=== PATIENT | female | born 1970 | race Caucasian/White ===

== ENCOUNTER → 2016-07-05 | Outpatient (CLI) | payer BC ==
[~2016-07-05] MED LIST: ACT300 PO; ACYC1CAP8 PO; AMOX500C3 PO; CALCTAB5 PO; ERGO1CAP35 PO; FRS/40 PO; PRLSR20 PO; PYRI100T4 PO; SERT-234 PO; SULF1TAB92 PO; TACR1CAP PO; [UNRECOGNIZED DRUG - OTHER] PO
[2016-07-09 01:40] LABS: CHLAMYDIA TRACH RNA*** NOT DETECTED (NOT DETECTED); GC (NEIS GONORRHOEAE)RNA** NOT DETECTED (NOT DETECTED)
== END | disposition home or self-care (01) ==
LOC: C.LABSPEC 16:08
PROVIDERS: ATTEND Obstetrics & Gynecology
DX: Z11.3 Encounter for screening for infections with a predominantly sexual mode of transmission (principal)

== ENCOUNTER → 2016-07-05 | Outpatient (CLI) | payer BC | END | disposition home or self-care (01) | LOC: C.PAPS 11:19 | PROVIDERS: ATTEND Obstetrics & Gynecology | DX: Z01.419 Encounter for gynecological examination (general) (routine) without abnormal findings (principal) ==

== ENCOUNTER → 2016-07-08 | Outpatient (CLI) | payer BC | END | disposition home or self-care (01) | LOC: C.MAMM 13:49 | PROVIDERS: ATTEND Surgery | DX: Z01.818 Encounter for other preprocedural examination (principal); M85.80 Other specified disorders of bone density and structure, unspecified site ==

== ENCOUNTER → 2016-09-16 | Outpatient (CLI) | payer BC ==
[2016-09-18 19:42] LABS: CMV DNA PCR QUANT SOURCE Plasma; CMV DNA QN REAL TIME PCR <200 IU/mL (<200); EBV DNA QUANT PCR <200 copies/mL (<200); EBV DNA QUANT SOURCE Whole Blood
== END | disposition home or self-care (01) ==
LOC: C.LAB 17:35
PROVIDERS: ATTEND Surgery
DX: Z94.82 Intestine transplant status (principal)

== ENCOUNTER → 2016-11-28 | Outpatient (CLI) | payer BC ==
[~2016-11-28] MED LIST changes: +ACYC-57 PO; -ACYC1CAP8 PO
--- NOTE | 2016-11-29 14:23 | MAMMOGRAPHY REPORT ---
BILATERAL DIGITAL SCREENING MAMMOGRAM TOMOSYNTHESIS WITH CAD: 11/28/2016 CLINICAL HISTORY: Routine screening. Patient has no complaints. TECHNIQUE: Breast tomosynthesis in addition to standard 2D mammography was performed. Current study was also evaluated with a Computer Aided Detection (CAD) system. COMPARISON: Comparison is made to exams dated: 11/28/2015 mammogram, 11/24/2014 mammogram, 11/08/2013 m ammogram, 05/10/2013 mammogram, 11/05/2012 mammogram, and 10/22/2012 mammogram - [facility] enter. BREAST COMPOSITION: There are scattered areas of fibroglandular density in both breasts. FINDINGS: There is a stable ribbon shaped metallic biopsy marker in the superior right breast. Stabl e asymmetry in the lateral left breast. No new suspicious mass, architectural distortion or cluster of microcalcifications is seen. IMPRESSION: ACR BI-RADS CATEGORY 1: NEGATIVE There is no mammographic evidence of malignancy. A 1 year screening mammogram is recommended. The pa tient will receive written notification of the results. Approximately 10% of breast cancers are not detected with mammography. A negative mammographic report should not delay biopsy if a clinically suggestive mass is present. Amena Garcia M.D. ay/:11/28/2016 17:14:28 Plant Machinist: Phoebe JOSHI)(Nuria)(BD), [facility] letter sent: Normal 1/2 BI-RADS Code: ACR BI-RADS Category 1: Negative
== END | disposition home or self-care (01) ==
LOC: C.MAMM 15:28
PROVIDERS: ATTEND Surgery
DX: Z12.31 Encounter for screening mammogram for malignant neoplasm of breast (principal)

== ENCOUNTER → 2016-12-25 | Outpatient (CLI) | payer BC ==
[~2016-12-25] MED LIST changes: -ACYC-57 PO; +ACYC1CAP8 PO
[2016-12-25 10:17] LABS: ALT/SGPT 23 U/L (12-78); BLOOD UREA NITROGEN 16 mg/dl (7-18); BUN/CREATININE RATIO 10.6 (10-20); CALCIUM 8.9 mg/dl (8.5-10.1); CARBON DIOXIDE 27 mmol/L (21-32); CHLORIDE 107 mmol/L (98-107); GLUCOSE 96 mg/dl (70-99); MAGNESIUM 2.2 mg/dl (1.8-2.4); SODIUM 140 mmol/L (136-145); URIC ACID 6.4 mg/dl (2.6-7.2)
[2016-12-25 10:20] LABS: ALKALINE PHOSPHATASE 113 U/L (45-117); AST/SGOT 16 U/L (15-37); PHOSPHORUS 2.5 mg/dl (2.5-4.9)
[2016-12-27 00:45] LABS: FK506 TACROLIMUS HIGHLY SENS 4.7 MCG/L (5-20)
== END | disposition home or self-care (01) ==
LOC: C.LAB 08:53
PROVIDERS: ATTEND Surgery
DX: N28.9 Disorder of kidney and ureter, unspecified (principal); Z94.82 Intestine transplant status

== ENCOUNTER 2017-05-10 18:52 | Emergency (ER) | payer BC, OTHER ==
[~2017-05-10] VITALS: Ht 162.6 cm; Wt 103.5 kg
[~2017-05-10 18:52] MED LIST changes: +ACYC-57 PO; -ACYC1CAP8 PO
[2017-05-10 18:55] VITALS: TEMP 37; Ht 162.6 cm; Wt 103.5 kg
[2017-05-10] MEDS ORDERED: SODIUM CHLORIDE 0.9% 1000ML 1,000 ML IV STA (18:57)
[2017-05-10 19:06] VITALS: O2SAT 99
[2017-05-10 19:09] LABS: ISTAT CREATININE 1.5 mg/dl (0.6-1.3); ISTAT HEMOGLOBIN 12.2 g/dl (12.0-16.0); ISTAT IONIZED CALCIUM 1.16 mmol/l (1.12-1.32)
[2017-05-10] MEDS ORDERED: PIPERACILLIN/TAZOBACTAM 4.5 GM/100ML D5W IV STA (19:09)
[2017-05-10 19:11] LABS: BASO % 0.2 %; BASO ABS # 0.01 K/uL (0-0.2); COMPLETE YES; EOS % 9.2 %; HEMATOCRIT 38.2 % (37-47); IG% 0.4 %; LYMPH % 20.8 %; LYMPH ABS # 1.06 K/uL (1.2-3.4); MEAN CELL VOLUME 94.8 fL (80-100); MEAN CORPUSCULAR HEMOGLOBIN 31.8 pg (25-34); MEAN CORPUSCULAR HGB CONC 33.5 g/dl (32-36); MONO % 3.3 %; NEUT % 66.1 %; PLATELET COUNT 140 K/uL (130-400); RED BLOOD COUNT 4.03 M/uL (4.2-5.4); WHITE BLOOD COUNT 5.09 K/uL (4.8-10.8)
[2017-05-10] MEDS ORDERED: OPTIRAY 320 IV PRN (19:15)
[2017-05-10 19:23] LABS: INR 0.9 (0.9-1.1); PARTIAL THROMBOPLASTIN RATIO 0.9
[2017-05-10 19:30] LABS: BUN/CREATININE RATIO 9.4 (10-20); CALCIUM 8.5 mg/dl (8.5-10.1); CREATININE 1.53 mg/dl (0.60-1.20); POTASSIUM 3.4 mmol/L (3.5-5.1)
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
[2017-05-10] MEDS ORDERED: HYDROmorphone INJ 1 MG/ML SYR IV STA (19:46)
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
[2017-05-10 20:18] VITALS: BP 152/87; PULSE 61; O2SAT 100
[2017-05-10] MEDS ORDERED: LORAZEPAM 0.5 MG TAB SL STA (20:40)
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
== END 2017-05-10 20:50 | disposition short-term general hospital (02) ==
LOC: C.EDA 18:52 → EDBD 18:52 → C.EDA 20:50
DX: K56.609 Unspecified intestinal obstruction, unspecified as to partial versus complete obstruction (principal); V40.0XXA Car driver injured in collision with pedestrian or animal in nontraffic accident, initial encounter; Z98.84 Bariatric surgery status; R03.0 Elevated blood-pressure reading, without diagnosis of hypertension

== ENCOUNTER → 2017-11-14 | Outpatient (CLI) | payer OTHER ==
[~2017-11-14] MED LIST changes: -ACT300 PO; -ACYC-57 PO; -PYRI100T4 PO; -SULF1TAB92 PO; -[UNRECOGNIZED DRUG - OTHER] PO
== END | disposition home or self-care (01) ==
LOC: C.PAPS 17:08
PROVIDERS: ATTEND Obstetrics & Gynecology
DX: Z12.4 Encounter for screening for malignant neoplasm of cervix (principal); K92.9 Disease of digestive system, unspecified